=== PATIENT | female | born 1995 | race Caucasian/White ===

== ENCOUNTER → 2016-05-19 | Outpatient (CLI) | payer OTHER | LOC: COL.RAD 07:30 | DX: M54.2 Cervicalgia (principal) ==

== ENCOUNTER 2016-12-18 00:17 | Emergency (ER) | payer OTHER ==
[~2016-12-18] VITALS: Ht 180.3 cm; Wt 72.7 kg
[2016-12-18 00:18] VITALS: TEMP 98.7
[2016-12-18 00:51] LABS: PH 6 (5-8); SQUAMOUS EPITHELIAL 0-2 /hpf; URINE APPEARANCE Clear; URINE BACTERIA Rare /hpf; URINE BILIRUBIN Negative (NEGATIVE); URINE BLOOD Negative (NEGATIVE); URINE COLOR Yellow; URINE GLUCOSE Negative (NEGATIVE); URINE KETONE Negative (NEGATIVE); URINE RBC 0-2 /hpf; URINE UROBILINOGEN Negative (NEGATIVE); URINE WBC 0-2 /hpf
[2016-12-18 01:09] LABS: BASO # 0.1 (0.0-0.2); BASO % 0.6 % (0.0-2.0); EOS # 0.1 (0.0-0.7); EOS % 1.3 % (0-4.0); GRAN # 5.4 (1.4-6.5); HEMOGLOBIN 14.6 g/dl (12.5-16.0); LYMPH # 3.5 (1.2-3.4); LYMPH % 35.2 % (20.0-51.0); MEAN CELL VOLUME 93 fl (80.0-100.0); MEAN CORPUSCULAR HEMOGLOBIN 32 pg (27.0-31.0); MEAN CORPUSCULAR HGB CONC 35 g/dl (33.0-37.0); MEAN PLATELET VOLUME 11.3 fl (7.4-10.4); MONO # 0.8 (0.1-0.6); MONO % 8.3 % (1.7-9.3); PLATELET COUNT 299 K/mm3 (130-400); REDCELL DISTRIBUTION WIDTH-CV 11.9 % (11.5-14.5)
[2016-12-18 01:33] LABS: ADJUSTED CALCIUM 8.4 mg/dL (8.4-10.2); ALANINE AMINOTRANSFERASE 23 U/L (9-52); ALBUMIN 4.3 gm/dL (3.5-5.0); ALKALINE PHOSPHATASE 80 U/L (50-136); ANION GAP 8 mmol/L (7-16); BILIRUBIN,TOTAL 0.4 mg/dL (0.0-1.0); BLOOD UREA NITROGEN 13 mg/dL (7-17); C-REACTIVE PROTEIN < 0.5 mg/dL (0.0-0.9); CALCIUM 8.6 mg/dL (8.4-10.2); CARBON DIOXIDE 24 mmol/L (22-30); CHLORIDE 105 mmol/L (98-107); CREATININE, serum 0.72 mg/dL (0.52-1.25); GLUCOSE 93 mg/dL (74-106); LIPASE 80 U/L (23-300); POTASSIUM 4.2 mmol/L (3.4-5.0); SODIUM 138 mmol/L (137-145)
[2016-12-18 01:35] VITALS: BP 111/74
[2016-12-18] MEDS ORDERED: ZOFRAN ODT4 MG PO (02:07)
[2016-12-18] MEDS ORDERED: NORCO 325 MG-51 TAB PO (02:07)
[2016-12-18 02:30] VITALS: PULSE 66
== END 2016-12-18 02:30 | disposition home or self-care (01) ==
LOC: COL.ER 00:17
PROVIDERS: Emergency Medicine; Nurse Practitioner
DX: R10.11 Right upper quadrant pain (principal)
CPT/HCPCS: J1170; J2405; J7030

== ENCOUNTER → 2016-12-21 | Outpatient (CLI) | payer OTHER ==
[~2016-12-21] MED LIST: NORCO 325 MG-51 TAB PO; ZOFRAN ODT4 MG PO
== END ==
LOC: COL.RAD 10:26
DX: R10.11 Right upper quadrant pain (principal)

== ENCOUNTER 2017-01-17 01:49 | Emergency (ER) | payer OTHER ==
[~2017-01-17] VITALS: Ht 180.3 cm; Wt 75.0 kg
[2017-01-17 01:51] VITALS: TEMP 98.2
[2017-01-17 02:22] LABS: BASO # 0.1 (0.0-0.2); BASO % 0.5 % (0.0-2.0); EOS # 0.1 (0.0-0.7); EOS % 0.9 % (0-4.0); GRAN # 5.5 (1.4-6.5); GRAN % 60.1 % (42.2-75.2); HEMATOCRIT 39.3 % (37.0-47.0); HEMOGLOBIN 13.6 g/dl (12.5-16.0); LYMPH # 2.5 (1.2-3.4); LYMPH % 26.8 % (20.0-51.0); MEAN CELL VOLUME 92 fl (80.0-100.0); MEAN CORPUSCULAR HEMOGLOBIN 32 pg (27.0-31.0); MEAN CORPUSCULAR HGB CONC 35 g/dl (33.0-37.0); MEAN PLATELET VOLUME 10.5 fl (7.4-10.4); MONO # 1.1 (0.1-0.6); MONO % 11.6 % (1.7-9.3); PLATELET COUNT 216 K/mm3 (130-400); RED BLOOD COUNT 4.27 M/mm3 (4.10-5.30); WHITE BLOOD COUNT 9.2 K/mm3 (4.8-10.8)
[2017-01-17 02:36] LABS: ADJUSTED CALCIUM 8.7 mg/dL (8.4-10.2); ALANINE AMINOTRANSFERASE 19 U/L (9-52); ALBUMIN 4.6 gm/dL (3.5-5.0); ALKALINE PHOSPHATASE 60 U/L (50-136); ANION GAP 14 mmol/L (7-16); BILIRUBIN,TOTAL 0.4 mg/dL (0.0-1.0); BLOOD UREA NITROGEN 8 mg/dL (7-17); CALCIUM 9.2 mg/dL (8.4-10.2); CARBON DIOXIDE 20 mmol/L (22-30); CHLORIDE 106 mmol/L (98-107); CREATININE, serum 0.65 mg/dL (0.52-1.25); GLUCOSE 106 mg/dL (74-106); LIPASE 324 U/L (23-300); POTASSIUM 3.7 mmol/L (3.4-5.0); SODIUM 140 mmol/L (137-145); TOTAL PROTEIN 6.8 gm/dL (6.4-8.2)
[2017-01-17 02:38] LABS: C-REACTIVE PROTEIN < 0.5 mg/dL (0.0-0.9)
[2017-01-17 03:09] LABS: COLLECTION METHOD CLEAN CATCH
[2017-01-17 03:22] LABS: PH 6 (5-8); SQUAMOUS EPITHELIAL 0-2 /hpf; URINE APPEARANCE Clear; URINE BACTERIA None Seen /hpf; URINE BILIRUBIN Negative (NEGATIVE); URINE BLOOD 1+ (NEGATIVE); URINE COLOR Straw; URINE GLUCOSE Negative (NEGATIVE); URINE KETONE Negative (NEGATIVE); URINE LEUKOCYTE ESTERASE Negative (NEGATIVE); URINE PROTEIN(semi-quant) Negative (NEGATIVE); URINE RBC 0-2 /hpf; URINE UROBILINOGEN Negative (NEGATIVE); URINE WBC 0-2 /hpf
[2017-01-17] MEDS ORDERED: PHENERGAN 25 TA25 MG PO (03:49)
[2017-01-17] MEDS ORDERED: NEXIUM 20MG20 MG PO (03:49)
[2017-01-17 04:06] VITALS: BP 124/78; PULSE 82
== END 2017-01-17 04:06 | disposition home or self-care (01) ==
LOC: COL.ER 01:49
PROVIDERS: Emergency Medicine
DX: R10.11 Right upper quadrant pain (principal); Z32.02 Encounter for pregnancy test, result negative
CPT/HCPCS: C9113; J2405; J2550; J7030

== ENCOUNTER 2017-02-09 09:50 | Day surgery (SDC) | payer OTHER ==
[~2017-02-09] VITALS: Ht 180.3 cm; Wt 73.9 kg
[~2017-02-09 09:50] MED LIST changes: +NEXIUM 20MG20 MG PO; +PHENERGAN 25 TA25 MG PO
[2017-02-09 10:37] VITALS: BP 122/74; PULSE 73; TEMP 99.1
[2017-02-09] MEDS ORDERED: NEXIUM 20MG20 MG PO (10:48)
[2017-02-09] MEDS ORDERED: AZO-CRANBERRY450 MG PO (10:49)
[2017-02-09 12:24] VITALS: BP 112/61; PULSE 72; TEMP 98.7
[2017-02-09 12:45] VITALS: BP 110/77; PULSE 71
[2017-02-09 13:00] VITALS: BP 108/69; PULSE 75
[2017-02-09 13:37] VITALS: BP 102/70; PULSE 73
== END 2017-02-09 13:41 | disposition home or self-care (01) ==
LOC: SDCO 09:50
DX: K21.9 Gastro-esophageal reflux disease without esophagitis (principal); K29.70 Gastritis, unspecified, without bleeding; K92.1 Melena
CPT/HCPCS: OP; J2250; J3010; J7030